=== PATIENT | male | born 1970 | race Caucasian/White ===

== ENCOUNTER 2020-06-09 12:02 | Observation (INO) | payer MEDICARE, MEDICAID, SELFPAY ==
[2020-06-09 12:05] VITALS: BP 187/131; PULSE 85; RESP 18; TEMP 36.2; O2SAT 95; BMI 30.7
[2020-06-09 12:21] LABS: Glucose Point of Care 123 mg/dL (70-110)
--- NOTE | 2020-06-09 12:27 | CTR_ITS ---
PROCEDURE INFORMATION: Exam: CT Head Without Contrast Exam date and time: 06/09/2020 12:29 PM Age: 49 years old Clinical indication: Other: Neuro symptoms TECHNIQUE: Imaging protocol: Computed tomography of the head without contrast. Radiation optimization: All CT scans at this facility use at least one of these dose optimization techniques: automated exposure control; mA and/or kV adjustment per patient size (includes targeted exams where dose is matched to clinical indication); or iterative reconstruction. COMPARISON: CT head wo con* [id number] 03/03/2018 7:31 AM RADIATION DOSE METRICS: Total DLP (mGy-cm): 896 FINDINGS: Brain: Stable encephalomalacia and 8.4 x 5.0 x 8.1 cm cystic collection in the right frontal lobe. Stable periventricular hypodensity and dural calcification. 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 Bones/joints: No acute calvarial pathology. Sinuses: No sinus fluid. Mastoid air cells: No mastoid effusion. Soft tissues: Unremarkable soft tissues. When correlating with the previous study, no significant interval changes are present. CT/CT head wo con* [id number] IMPRESSION: Stable appearance of the brain, not significantly changed from 03/03/18. Radiation Dose CTDIVOL = (mGy): DLP = 896 (mGy-cm)
--- NOTE | 2020-06-09 12:27 | ECG_ITS ---
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 Measurements Intervals [place] Rate: 80 P: 57 CO: 181 QRS: -7 QRSD: 77 T: 38 QT: 351 QTc: 406 Interpretive Statements SINUS RHYTHM POSSIBLE LEFT ATRIAL ENLARGEMENT [-0.1mV P WAVE IN V1/V2] Compared to ECG 03/03/2018 07:54:12 No significant changes Electronically Signed On 06-09-2020 18:12:11 CDT by Loren Nath M.D. [id number] f
--- NOTE | 2020-06-09 12:27 | XR_ITS ---
WS: [id number] EXAM: AP CHEST: PORTABLE UPRIGHT DATE OF EXAM: 06/09/2020, 1245 hours COMPARISON: Chest x-ray from 03/03/2018 HISTORY: Patient is 49 years old with acute mental status changes.. FINDINGS: The cardiac silhouette is normal in size. The mediastinal contours are normal. The pulmonary vas cularity is normal. The lungs are clear of infiltrate. There is no effusion or pneumothorax. Bone density is decreased. Scattered changes of arthritis are seen in the spine. XR/XR chest 1V portable [id number] IMPRESSION: No acute pulmonary disease.
[2020-06-09 12:54] LABS: Basophils % 0.3 %; Eosinophils % 0.4 %; Hematocrit 47.1 % (42.0-52.0); Hemoglobin 15.7 g/dL (11.7-16.6); Lymphocytes # 0.9 10^3/uL (0.8-4.8); Lymphocytes % 9.1 %; Mean Corpuscular HGB Conc 33.3 g/dL (30.0-36.0); Mean Corpuscular Hemoglobin 27.5 pg (28.0-34.0); Mean Corpuscular Volume 82.5 fL (80-94); Mean Platelet Volume 8.8 fL (7.4-10.4); Monocytes # 0.6 10^3/uL (0.2-0.9); Monocytes % 5.9 %; Neutrophils # 8.69 10^3/uL (1.8-7.7); Neutrophils % 83.9 %; Nucleated Red Blood Cells % 0 %; Platelet Count 379 10^3/cmm (130-400); Red Blood Count 5.71 10^6/uL (4.1-5.3); Red Cell Distribution Width 12.7 % (12.1-15.1); White Blood Count 10.4 10^3/uL (4.0-10.0)
[2020-06-09 12:56] LABS: Troponin(5th) Baseline 9 ng/L (0-15)
[2020-06-09 13:06] LABS: Alanine Aminotransferase 20 U/L (0-41); Albumin Level 4.8 g/dL (3.5-5.2); Alkaline Phosphatase 140 IU/L (40-130); Anion Gap 14.3 (5-19); Aspartate Amino Transferase 28 U/L (0-40); Blood Urea Nitrogen 5 mg/dL (6-20); Calcium 9.5 mg/dL (8.5-10.5); Carbon Dioxide 27 mmol/L (22-29); Chloride 88 mmol/L (98-107); Creatine Phosphokinase 220 U/L (39-308); Globulin 2.6 g/dL (1.3-4.6); Glomerular Filtration Rate 101.9 mL/min (90-130); Glucose 121 mg/dL (65-115); Lipase 40 U/L (13-60); NT Pro B Type Natriuretic Pept 214 pg/mL (0-125); Osmolality Calculated 257 mOsm/kg (285-295); Potassium 4.3 mmol/L (3.5-5.1); Sodium 125 mmol/L (136-145); Total Bilirubin 0.9 mg/dL (0.15-1.2); Total Protein 7.4 g/dL (6.6-8.7)
[2020-06-09 14:01] LABS: Glucose Urine UA Norm (Normal); Ketones Urine Negative (Negative); Protein Urine Trace (Negative); Urine Appearance Clear (CLEAR); Urine Color Yellow (Yellow); pH Urine 8 (5-7)
[2020-06-09 14:02] LABS: Add Urine Microscopic? YES; Bilirubin Urine Neg (NEGATIVE); Blood Urine Trace (Negative); Leukocyte Esterase Urine Negative (Negative); Nitrate Urine Negative (Negative); Sulfosalicylic Acid Urine Trace (Negative); Urobilinogen Urine Norm (Negative)
[2020-06-09 14:04] LABS: Bacteria Urine TRACE; Mucus Urine TRACE; RBC Urine 0-4 /hpf (0-2); Squamous Epithelial Cell Urine RARE (0-5)
[2020-06-09 14:05] LABS: Add Urine Culture? No
--- NOTE | 2020-06-09 14:27 | ECG_ITS ---
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 Measurements Intervals [place] Rate: 69 P: 47 FL: 171 QRS: -20 QRSD: 82 T: 37 QT: 380 QTc: 409 Interpretive Statements SINUS RHYTHM Compared to ECG 03/03/2018 07:54:12 No significant changes Electronically Signed On 06-09-2020 18:15:02 CDT by Loren Nath M.D. [id number]
[2020-06-09 14:40] LABS: Troponin 5 2HR 8.58 ng/L (0-15)
[2020-06-09 14:46] LABS: Troponin 5 2HR Delta -0.42 ABS# (0-10)
--- NOTE | 2020-06-09 15:50 | ED_ITS ---
HPI - Chest Pain General: Chief Complaint: Chest Pain Stated Complaint: stroke s/s Time Seen by Provider: 06/09/20 12:05 Source: family Mode of arrival: EMS History of Present Illness: HPI narrative: The patient is a 49 year old male who has a prior CVA and has speech and left sided deficits presents to the ED with generalized weakness. Apparently sometime during the night he got up and fell a couple of times and after that said he was too weak to get back to bed and so lay on the couch all night. It is difficult to obtain a history from him because of his prior CVA. 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, expressive aphasia Developmental delay, mild HTN (hypertension) Hydrocephalus associated with congenital aqueduct stenosis Hyponatremia Obesity (BMI 30.0-34.9) Surgical History No pertinent past surgical history Family History Mother Stroke Father Cancer Social History (Updated 06/09/20 @ 16:18 by Anabela Koroma MD) Smoking and tobacco status: never smoked Alcohol intake: never Substance/Drug Use: never Lives independently: Yes Housing: Manufactured/Mobile home Current occupational status: disabled Physical Exam Const: COMMON NORMALS: no acute distress and alert EXAM LIMITATIONS: language barrier (Speech) and physical limitations GENERAL APPEARANCE: cooperative HENMT: COMMON NORMALS: normocephalic and atraumatic HEAD & SCALP: normocephalic and atraumatic Neck/C-Spine: COMMON NORMALS: no meningeal signs CERVICAL SPINE: Yes cervical ROM normal and No Cervical spine tenderness Chest: COMMONS NORMALS: normal inspection of the chest and normal palpation of entire chest wall Resp: COMMON NORMALS: normal respiratory effort, No retractions, No use of accessory muscles and clear to auscultation bilaterally AUSCULTATION: clear to auscultation bilaterally Cardio: COMMON NORMALS: regular rate, regular rhythm, S1 normal heart sound present, S2 normal heart sound present and No murmurs present (Cardio) RATE: regular rate RHYTHM: regular rhythm HEART SOUNDS: S1 normal heart sound present and S2 normal heart sound present GI: COMMON NORMALS: Normal to inspection, nondistended, normoactive bowel sounds present and non-tender : COMMON NORMALS: Yes no CVA tenderness BLADDER/KIDNEY EXAM: Yes no CVA tenderness Back/Pelvis: COMMON NORMALS: no CVA tenderness, thoracic and lumbar spine normal to inspection and no thoracic nor lumbar tenderness Neuro: SENSORIUM/ORIENTATION: Yes alert MENINGEAL SIGNS: Yes no meningeal signs OTHER: Neurologic exam difficult to perform because the patient is unable to follow commands and he has baseline speech deficits and weakness Course Consultations: Consultation #1: Discussed the patient with Dr. Koroma, hospitalist and she kindly accepted the patient to her service Vital Signs: Vital signs: Vital Signs Temperature 98.2 F 06/10/20 11:41 Pulse Rate 74 06/10/20 11:41 Respiratory Rate 18 06/10/20 11:41 Blood Pressure 167/73 06/10/20 11:41 Pulse Oximetry 96 06/10/20 11:41 MDM - Chest Pain MDM Narrative: Medical decision making narrative: 49-year-old gentleman with a prior history of a CVA presents to the emergency department with generalized weakness and falls. Evaluation in the ED shows he has moderate hyponatremia and a possible TIA. He is therefore admitted for further evaluation and management. Medical Records: Attestation: I reviewed the patient's medical records. Lab Data: Attestation: I reviewed the patient's lab results. Labs: Lab Results 06/09/20 06/09/20 06/09/20 Range/Units 12:14 12:17 12:17 WBC 10.4 H (4.0-10.0) 10^3/ uL RBC 5.71 H (4.1-5.3) 10^6/u L Hgb 15.7 (11.7-16.6) g/dL Hct 47.1 (42.0-52.0) % MCV 82.5 (80-94) fL MCH 27.5 L (28.0-34.0) pg MCHC 33.3 (30.0-36.0) g/dL RDW 12.7 (12.1-15.1) % Plt Count 379 (130-400) 10^3/c mm MPV 8.8 (7.4-10.4) fL Neut % (Auto) 83.9 % Lymph % (Auto) 9.1 % [place] % (Auto) 5.9 % Eos % (Auto) 0.4 % Baso % (Auto) 0.3 % Neut # (Auto) 8.69 H (1.8-7.7) 10^3/u L Lymph # (Auto) 0.9 (0.8-4.8) 10^3/u L [place] # (Auto) 0.6 (0.2-0.9) 10^3/u L Eos # (Auto) 0.0 (0.0-0.8) 10^3/u L Baso # (Auto) 0.0 (0.0-0.1) 10^3/u L Nucleated RBC % (a uto) 0 % Nucleated RBCs # 0.0 /100WBC Sodium 125 L (136-145) mmol/L Potassium 4.3 (3.5-5.1) mmol/L Chloride 88 L (98-107) mmol/L Carbon Dioxide 27 (22-29) mmol/L Anion Gap 14.3 (5-19) BUN 5 L (6-20) mg/dL Creatinine 0.8 (0.7-1.2) mg/dL GFR Calculation 101.9 (90-130) mL/min Glucose 121 H (65-115) mg/dL POC Glucose 123 (70-110) mg/dL Calculated Osmolal ity 257 L (285-295) mOsm/k g Calcium 9.5 (8.5-10.5) mg/dL Total Bilirubin 0.9 (0.15-1.2) mg/dL AST 28 (0-40) U/L ALT 20 (0-41) U/L Alkaline Phosphata se 140 H (40-130) IU/L Creatine Kinase 220 (39-308) U/L Troponin T Baselin e (0-15) ng/L Troponin T 120 Min [place] (0-15) ng/L Delta Troponin T (0-10) ABS# NT-Pro-B Natriuret Pep 214 H (0-125) pg/mL Total Protein 7.4 (6.6-8.7) g/dL Albumin 4.8 (3.5-5.2) g/dL Globulin 2.6 (1.3-4.6) g/dL Lipase 40 (13-60) U/L Urine Color (Yellow) Urine Appearance (CLEAR) Urine pH (5-7) Ur Specific Gravit y (1.005-1.030) Urine Protein (Negative) Urine Glucose (UA) (Normal) Urine Ketones (Negative) Urine Blood (Negative) Urine Nitrate (Negative) Urine Bilirubin (NEGATIVE) Prot Sulfosalicyli c Acd (Negative) Urine Urobilinogen (Negative) mg/dL Ur Leukocyte Angi ase (Negative) Urine RBC (0-2) /hpf Urine WBC (0-5) /hpf Ur Squamous Epith Cells (0-5) Amorphous Sediment Urine Bacteria (NONE) Urine Mucus 06/09/20 06/09/20 06/09/20 Range/Units 12:17 13:32 14:10 WBC (4.0-10.0) 10^3/ uL RBC (4.1-5.3) 10^6/u L Hgb (11.7-16.6) g/dL Hct (42.0-52.0) % MCV (80-94) fL MCH (28.0-34.0) pg MCHC (30.0-36.0) g/dL RDW (12.1-15.1) % Plt Count (130-400) 10^3/c mm MPV (7.4-10.4) fL Neut % (Auto) % Lymph % (Auto) % [place] % (Auto) % Eos % (Auto) % Baso % (Auto) % Neut # (Auto) (1.8-7.7) 10^3/u L Lymph # (Auto) (0.8-4.8) 10^3/u L [place] # (Auto) (0.2-0.9) 10^3/u L Eos # (Auto) (0.0-0.8) 10^3/u L Baso # (Auto) (0.0-0.1) 10^3/u L Nucleated RBC % (a uto) % Nucleated RBCs # /100WBC Sodium (136-145) mmol/L Potassium (3.5-5.1) mmol/L Chloride (98-107) mmol/L Carbon Dioxide (22-29) mmol/L Anion Gap (5-19) BUN (6-20) mg/dL Creatinine (0.7-1.2) mg/dL GFR Calculation (90-130) mL/min Glucose (65-115) mg/dL POC Glucose (70-110) mg/dL Calculated Osmolal ity (285-295) mOsm/k g Calcium (8.5-10.5) mg/dL Total Bilirubin (0.15-1.2) mg/dL AST (0-40) U/L ALT (0-41) U/L Alkaline Phosphata se (40-130) IU/L Creatine Kinase (39-308) U/L Troponin T Baselin e 9 (0-15) ng/L Troponin T 120 Min [place] 8.58 (0-15) ng/L Delta Troponin T -0.42 L (0-10) ABS# NT-Pro-B Natriuret Pep (0-125) pg/mL Total Protein (6.6-8.7) g/dL Albumin (3.5-5.2) g/dL Globulin (1.3-4.6) g/dL Lipase (13-60) U/L Urine Color Yellow (Yellow) Urine Appearance Clear (CLEAR) Urine pH 8 H (5-7) Ur Specific Gravit y 1.010 (1.005-1.030) Urine Protein Trace (Negative) Urine Glucose (UA) Norm (Normal) Urine Ketones Negative (Negative) Urine Blood Trace H (Negative) Urine Nitrate Negative (Negative) Urine Bilirubin Neg (NEGATIVE) Prot Sulfosalicyli c Acd Trace (Negative) Urine Urobilinogen Norm (Negative) mg/dL Ur Leukocyte Angi ase Negative (Negative) Urine RBC 0-4 H (0-2) /hpf Urine WBC None (0-5) /hpf Ur Squamous Epith Cells Rare (0-5) Amorphous Sediment Not Reportable Urine Bacteria Trace (NONE) Urine Mucus Trace Imaging Data^: CT Head: Radiologist's impression: [address] [address] [address] Scan Report Signed Patient: Morelia Ennis #: [id number] : 1970Acct#:[id number] Age/Sex: 49 / MADM Date: 06/09/20 Loc: ERRoom/Bed: Attending Dr: Ordering Provider/Ordering MD: Jigna Almendarez MD, [facility] [place] Date of Service: 06/09/20 Procedure(s): CT head wo con* [id number] Accession Number(s): [id number] Report Number: [id number] PROCEDURE INFORMATION: Exam: CT Head Without Contrast Exam date and time: 06/09/2020 12:29 PM Age: 49 years old Clinical indication: Other: Neuro symptoms TECHNIQUE: Imaging protocol: Computed tomography of the head without contrast. Radiation optimization: All CT scans at this facility use at least one of these dose optimization techniques: automated exposure control; mA and/or kV adjustment per patient size (includes targeted exams where dose is matched to clinical indication); or iterative reconstruction. COMPARISON: CT head wo con* [id number] 03/03/2018 7:31 AM RADIATION DOSE METRICS: Total DLP (mGy-cm): 896 FINDINGS: Brain: Stable encephalomalacia and 8.4 x 5.0 x 8.1 cm cystic collection in the right frontal lobe. Stable periventricular hypodensity and dural calcification. 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 Bones/joints: No acute calvarial pathology. Sinuses: No sinus fluid. Mastoid air cells: No mastoid effusion. Soft tissues: Unremarkable soft tissues. When correlating with the previous study, no significant interval changes are present. CT/CT head wo con* [id number] IMPRESSION: Stable appearance of the brain, not significantly changed from 03/03/18. Radiation Dose CTDIVOL = (mGy): DLP = 896 (mGy-cm) Dictated By:Ash Johnston MD Signed By:Ash Johnston MDSigned Date/Time:06/09/20 1336 DD/ 133 CXR: Radiologist's impression: [address] [address] XRay Report Signed Patient: Morelia Ennis #: [id number] : 1970Acct#:[id number] Age/Sex: 49 / MADM Date: 06/09/20 Loc: [facility]/Bed: 253-[address]: Anjum Fisher MD Ordering Provider/Ordering MD: Jigna Almendarez MD, [facility] [place] Date of Service: 06/09/20 Procedure(s): XR chest 1V portable [id number] Accession Number(s): [id number] Report Number: [id number] WS: [id number] EXAM: AP CHEST: PORTABLE UPRIGHT DATE OF EXAM: 06/09/2020, 1245 hours COMPARISON: Chest x-ray from 03/03/2018 HISTORY: Patient is 49 years old with acute mental status changes.. FINDINGS: The cardiac silhouette is normal in size. The mediastinal contours are normal. The pulmonary vascularity is normal. The lungs are clear of infiltrate. There is no effusion or pneumothorax. Bone density is decreased. Scattered changes of arthritis are seen in the spine. XR/XR chest 1V portable [id number] IMPRESSION: No acute pulmonary disease. Dictated By:Jean Orozco MD Signed By:Jean Orozco MDSigned Date/Time:06/10/20715 DD/ Discharge Plan Discharge Patient Disposition: Admitted As Inpatient Admit Provider: Anabela Koroma Clinical Impression: Brain TIA, Hyponatremia Condition: Stable Interventions: ED Discharge Assessment Last Done: 06/09/20 16:08 ED Charges Last Done: 06/09/20 16:08 Discharge Date/Time: 06/09/20 17:28 Coding Level of Care Code ED Stock Letterer for Johana Tinoco
[2020-06-09 16:06] VITALS: BP 179/104; PULSE 78; RESP 18; O2SAT 96
--- NOTE | 2020-06-09 16:07 | PM.HP ---
Providers/Chief Complaint Admitting Physician: Anabela Koroma MD Primary Care Provider: None Chief Complaint: stroke s/s History of Present Illness Rajesh Ennis is a 49 year old male with past medical history noted below presents accompanied by mother for evaluation of noted increased upper extremity weakness, lower extremity weakness, facial droop and fall last night. He has some degree of cognitive developmental delay so much of the history is obtained from mother at bedside and review of medical record. Per mother and nursing staff patient already has significant improvement in terms of ability to vocalize and level of alertness since being seen in the ER. Mother states that he is fairly independent, lives in a trailer behind her home and seemed to be doing well until he came to the house last night stating that he had fallen out of bed. She is unable to elicit further information from him but she did notice that he was dragging his leg, she cannot remember which one and had a noted facial droop, cannot remember which side and had significant difficulty with his speech. He has baseline aphasia but she is typically able to understand his speech, last night she noticed that his speech was more garbled and he had difficulty forming words with his tongue. She helped get him cleaned up and then brought him to the hospital for further evaluation. He does not have a regular doctor that he sees and is not on regular medications. He had a prior stroke in 2017 during which time he was admitted at this facility, at that time he was discharged on aspirin, Plavix, statin, MARAH inhibitor, Lasix. I am unsure how long he has not been taking these medications. Per his mother his speech is almost at baseline. He is quite hypertensive with blood pressure of 183/131 with otherwise normal vital signs and is on room air. CT scan of the head does not show any acute findings. Her labs indicate mild leukocytosis with a white count of 10.4, normal hemoglobin at 15.7, sodium of 125, normal renal function, ALP of 140 with otherwise normal LFTs, normal troponins, BNP of 214, negative urinalysis. Chest x-ray has been done but is pending report. Discussed with patient and mother need for further assessment as he has been off his medications for some time and is at risk for further ischemic episodes. He is agreeable to staying overnight for further monitoring. Discussed echo and carotid ultrasound as well as part of the work-up which they are both agreeable to also. Review of Systems Const: Reports: fatigue; Denies: fever(s), chills or change in appetite Eyes: Denies: change in vision ENMT: Reports: dry mouth Card: Denies: chest pain, swelling of feet/ankles or lightheadedness Resp: Denies: dyspnea or productive cough GI: Denies: abdominal pain, nausea, vomiting, hematemesis or hematochezia : Denies: dysuria, urinary frequency or hematuria Musc: Denies: back pain Skin/Breast: Denies: rash Neuro: Reports: weakness in extremities and Slurred speech present; Denies: numbness in extremities Psych: Denies: anxiety Medications/Allergies Home Medications Medication Instructions Recorded Confirmed Last Taken Type No Known Home Medications 06/09/20 06/09/20 Unknown History Allergies Allergy/AdvReac Type Severity Reaction Status Date / Time No Known Allergies Allergy Verified 06/09/20 12:15 PFSH Acute PFSH: Medical History (Updated 06/09/20 @ 16:32 by Anabela Koroma MD) CVA (cerebral vascular accident) -in 04/2017, right 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, expressive aphasia Developmental delay, mild HTN (hypertension) Hydrocephalus associated with congenital aqueduct stenosis Hyponatremia Obesity (BMI 30.0-34.9) Surgical History No pertinent past surgical history Family History Mother Stroke Father Cancer Social History (Updated 06/09/20 @ 16:18 by Anabela Koroma MD) Smoking and tobacco status: never smoked Alcohol intake: never Substance/Drug Use: never Lives independently: Yes Housing: Manufactured/Mobile home Current occupational status: disabled Vitals/I&O/Wt Last Vital Signs Temp 97.2 F L 06/09/20 12:05 Pulse 78 06/09/20 16:06 Resp 18 06/09/20 16:06 BP 179/104 06/09/20 16:06 Pulse Ox 96 06/09/20 16:06 Weight last 48 hrs Weight 86.183 kg Physical Exam Const: COMMON NORMALS: no acute distress and alert GENERAL APPEARANCE: cooperative, comfortable and appears older than stated age NUTRITIONAL APPEARANCE: obese ORIENTATION/CONSCIOUSNESS: Yes awake OTHER: -Overall demeanor seems consistent with at least some moderate degree of cognitive mental delay -Difficult to gauge orientation due to patient's expressive aphasia HENMT: COMMON NORMALS: normocephalic, atraumatic, hearing grossly normal bilaterally and moist oral mucous membranes HEAD & SCALP: normocephalic and atraumatic Eye: COMMON NORMALS: Equal, round and reactive pupils present, EOMs intact bilaterally and conjunctivae normal CONJUNCTIVA: Yes conjunctivae normal PUPIL: Yes Equal, round and reactive pupils present Neck/C-Spine: COMMON NORMALS: full ROM GENERAL: Yes normal visual inspection and Yes trachea midline Resp: COMMON NORMALS: normal respiratory effort, No retractions, No use of accessory muscles and clear to auscultation bilaterally EFFORT & INSPECTION: Yes able to speak in complete sentences, Yes symmetric chest movement and No tachypneic AUSCULTATION: clear to auscultation bilaterally OTHER: -on RA Cardio: COMMON NORMALS: regular rate, regular rhythm, S1 normal heart sound present, S2 normal heart sound present and No murmurs present (Cardio) RATE: regular rate RHYTHM: regular rhythm HEART SOUNDS: S1 normal heart sound present and S2 normal heart sound present OTHER: -Hypertensive GI: COMMON NORMALS: Normal to inspection, nondistended, normoactive bowel sounds present, Soft to palpation and non-tender INSPECTION: Yes central obesity PALPATION: Yes Soft to palpation Extremity: COMMON NORMALS: no pedal edema NARRATIVE EXTREMITY EXAM: -Left upper extremity hemiparesis, mildly contracted, limited range of motion to about 50 degrees Neuro: COMMON NORMALS: moves all extremities, no focal motor deficits and no sensory deficits noted SENSORIUM/ORIENTATION: Yes alert SPEECH: expressive aphasia (Chronic) MOTOR EXAM: no tremor noted, Motor fasciculations not present and Abnormal motor strength present (Left upper extremity hemiparesis, strength 3 out of 5) OTHER: -Limited neurological exam due to patient's inability to fully comprehend commands secondary to underlying developmental delay Psych: COMMON NORMALS: cooperative ATTITUDE: Yes calm SPEECH: Yes slow and Yes soft THOUGHT PROCESS: Normal thought process present Skin: COMMON NORMALS: no rashes or lesions noted, no jaundice, no petechiae and no mottling GENERAL SKIN EXAM: no rashes or lesions noted Data : 06/09/20 12:17 06/09/20 12:17 A&P Assessment and plan (1) CVA (cerebral vascular accident): -Has history of prior stroke secondary to right LINOLEUM LAYER HELPER occlusion in 04/2017 with residual left-sided weakness, expressive aphasia -Symptoms described including more significant weakness, facial droop, lower extremity weakness and difficulty with ambulation concerning for TIA. 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 -resume salt tablets, fluid restriction, diuretics once out of permissive HTN window -monitor Na Status: Chronic (3) HTN (hypertension): -permissive HTN x 24 hrs -if need for more optimal BP control, can resume Amlodipine, ACEi which he was prescribed previously -monitor vital signs Status: Chronic Qualifiers: Hypertension type: essential hypertension Qualified Code(s): I10 - Essential (primary) hypertension (4) Developmental delay, mild: Status: Chronic (5) Hydrocephalus associated with congenital aqueduct stenosis: -visualized on prior CT head; appears unchanged Status: Chronic (6) Obesity (BMI 30.0-34.9): -BMI-31 kg/m2 Status: Chronic Additional A&P Information -Cardiac diet as tolerated if passed bedside swallow assessment -f/u CXR report -DVT ppx with SCDs, lovenox -Dispo: home, lives in trailer next to parents' home -Code status: FULL code Attestations Medical Necessity Statement*: [facility] stay will be less than 2 midnights for management of TIA and hyponatremia, requiring further workup including carotid US, Echo, and therapy evaluations. Time Spent in Patient Care: Greater than 35 minutes (>than 50% of time spent in counselling and/or direct pt care on unit). Coding Level of Care Code Acute Human Resources Department Supervisor for Chg Fwd Diagnoses CVA (cerebral vascular accident) I63.9 CVA mechanism: unspecified Hyponatremia E87.1 HTN (hypertension) I10 Hypertension type: essential hypertension Developmental delay, mild R62.50 Hydrocephalus associated with congenital aqueduct stenosis Q03.0 Obesity (BMI 30.0-34.9) E66.9
[2020-06-09 16:08] VITALS: BP 179/104; PULSE 78; RESP 20; TEMP 36.8; O2SAT 96
[2020-06-09 18:00] VITALS: BP 188/102; PULSE 79; RESP 18; TEMP 36.8; O2SAT 96
--- NOTE | 2020-06-09 18:27 | ECG_ITS ---
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 Measurements Intervals [place] Rate: 75 P: 29 IL: 164 QRS: 11 QRSD: 83 T: 48 QT: 374 QTc: 418 Interpretive Statements SINUS RHYTHM Compared to ECG 06/09/2020 14:52:24 No significant changes Electronically Signed On 06-10-2020 18:59:51 CDT by Loren Nath M.D. [id number]
[2020-06-09 18:36] VITALS: PULSE 75; O2SAT 97
[2020-06-09] MEDS: sodium chloride 1 gm Tablet PO (18:42)
[2020-06-09 20:00] VITALS: BP 159/106; PULSE 72; RESP 18; TEMP 37.2; O2SAT 97
[2020-06-09] MEDS: atorvastatin 40 mg Tablet PO (21:53)
[2020-06-10 00:42] VITALS: BP 163/103; PULSE 69; RESP 18; TEMP 36.7; O2SAT 98
[2020-06-10 03:12] LABS: Basophils % 0.4 %; Eosinophils # 0.2 10^3/uL (0.0-0.8); Eosinophils % 2.2 %; Hematocrit 42.9 % (42.0-52.0); Hemoglobin 14.4 g/dL (11.7-16.6); Lymphocytes # 1.4 10^3/uL (0.8-4.8); Lymphocytes % 19.7 %; Mean Corpuscular HGB Conc 33.6 g/dL (30.0-36.0); Mean Corpuscular Hemoglobin 28.2 pg (28.0-34.0); Mean Platelet Volume 8.9 fL (7.4-10.4); Monocytes # 0.7 10^3/uL (0.2-0.9); Monocytes % 10.3 %; Neutrophils # 4.83 10^3/uL (1.8-7.7); Neutrophils % 67.1 %; Nucleated Red Blood Cells % 0 %; Platelet Count 330 10^3/cmm (130-400); Red Blood Count 5.11 10^6/uL (4.1-5.3); Red Cell Distribution Width 12.8 % (12.1-15.1); White Blood Count 7.2 10^3/uL (4.0-10.0)
[2020-06-10 03:35] LABS: Anion Gap 12.9 (5-19); Blood Urea Nitrogen 8 mg/dL (6-20); Calcium 8.4 mg/dL (8.5-10.5); Carbon Dioxide 26 mmol/L (22-29); Chloride 92 mmol/L (98-107); Glomerular Filtration Rate 118.9 mL/min (90-130); Glucose 107 mg/dL (65-115); Osmolality Calculated 260 mOsm/kg (285-295); Potassium 3.9 mmol/L (3.5-5.1); Sodium 127 mmol/L (136-145)
[2020-06-10 03:36] LABS: Cholesterol 168 mg/dL (0-200); HDL Cholesterol 60 mg/dL (60-100); LDL Cholesterol Calculated 97 mg/dL (50-129); LDL HDL Ratio 1.62 RATIO (0.00-3.22); Triglycerides 56 mg/dL (0-150)
[2020-06-10 03:38] LABS: Thyroid Stimulating Hormone 0.65 uIU/mL (0.27-4.20)
[2020-06-10 03:43] LABS: Estmated Average Glucose 105; Hemoglobin A1C 5.3 % (4.0-6.0)
[2020-06-10 04:00] VITALS: BP 161/70; PULSE 71; RESP 19; TEMP 36.8; O2SAT 97
[2020-06-10 08:00] VITALS: BP 164/71; PULSE 72; RESP 20; TEMP 36.9; O2SAT 98
[2020-06-10] MEDS: sodium chloride 1 gm Tablet PO ×2 (08:17→17:34)
[2020-06-10] MEDS: clopidogrel 75 mg Tablet PO (08:18)
[2020-06-10] MEDS: lisinopril 20 mg Tablet PO (08:18)
[2020-06-10] MEDS: aspirin 81 mg EC Tablet PO (08:18)
--- NOTE | 2020-06-10 09:30 | PC.NURSE ---
HEART TO HEART ROUNDING NOTE Hospital Day #1, no PCP, Case Management might need to see, needs an ECHO possibly. Left sided weakness and facial drooping, plan is to be discharged potentially today (06/10) No IV, Sodium up to 127, deficits have mostly resolved according to nursing RT: Nothing noted Pharmacy: Nothing noted
[2020-06-10 11:41] VITALS: BP 167/73; PULSE 74; RESP 18; TEMP 36.8; O2SAT 96
--- NOTE | 2020-06-10 13:05 | PM.DCS ---
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 Qualifiers: CVA mechanism: unspecified Qualified Code(s): I63.9 - Cerebral infarction, unspecified (2) Hyponatremia: Status: Chronic Problem details: Improved (3) HTN (hypertension): Status: Chronic Problem details: Improved Qualifiers: Hypertension type: essential hypertension Qualified Code(s): I10 - Essential (primary) hypertension (4) Developmental delay, mild: Status: Chronic (5) Hydrocephalus associated with congenital aqueduct stenosis: Status: Chronic (6) Obesity (BMI 30.0-34.9): Status: Chronic Reason for Visit Reason for Visit: stroke s/s Hospital Course Hospital Course: Rajesh is a 49-year-old white male that presented from home with fall and perhaps more significant weakness on his left side and more facial droop. He had not been on his medications for stroke prevention for some time. There was also some concern for speech difficulties. While in the emergency department symptoms largely resolved. He was placed in an observation category. Aspirin Plavix and statin were restarted on the patient. EKG, and telemetry monitoring did not indicate any atrial fibrillation. CT head no acute changes. Chest x-ray no concerns. Ultimately echocardiogram demonstrated no thrombus and carotid duplex demonstrated no flow-limiting stenosis. On June 10 he was back to his baseline. It was thought he could transition home. Blood pressure was also high on admission. Permissive hypertension was allowed, and his blood pressure medicine started later approximately 24 hours after symptom resolution with improvement in blood pressure. This will need to be continued to be adjusted as an outpatient as well as repeat sodium to check on hyponatremia. Home health and home physical therapy will be arranged. I attempted to call family to inform them regarding his study results but they were unavailable and no answering service was noted. Physical Exam Narrative: EXAM NARRATIVE: General exam no apparent distress, conversive Cardiovascular regular rate and rhythm without murmur Lungs clear Abdomen is soft, positive bowel sounds Extremities no cyanosis or clubbing. Left partial hemiparesis noted, left facial droop which is reported to be at his baseline. Discharge Data Data Completed and Pending: Completed Studies During Hospitalization Category Date Time Status CT head wo con* [id number] Urgent Cat Scan 06/09/20 12:27 Completed XR chest 1V damari ble [id number] Stat Exams 06/09/20 12:27 Completed CV echo complete* [id number] Routine Ultrasound 06/10/20 17:41 Completed Pending at discharge Category Date Time Status CV carotid duplex BI* [id number] Routine Ultrasound 06/10/20 17:41 Taken Labs from last 24 hours 06/10/20 06/10/20 06/10/20 02:45 02:45 02:45 WBC RBC Hgb Hct MCV MCH MCHC RDW Plt Count MPV Neut % (Auto) Lymph % (Auto) Luna % (Auto) Eos % (Auto) Baso % (Auto) Neut # (Auto) Lymph # (Auto) Luna # (Auto) Eos # (Auto) Baso # (Auto) Nucleated RBC % (a uto) Nucleated RBCs # Sodium Potassium Chloride Carbon Dioxide Anion Gap BUN Creatinine GFR Calculation Glucose Estimat Average Gl ucose 105 Hemoglobin A1c 5.3 Calculated Osmolal ity Calcium Total Bilirubin AST ALT Alkaline Phosphata se Creatine Kinase Troponin T 120 Min [place] Delta Troponin T Troponin T Hi Sens 6Hr Troponin T Hi Sens 6Hr Delta NT-Pro-B Natriuret Pep Total Protein Albumin Globulin Triglycerides 56 Cholesterol 168 LDL Cholesterol, C alc 97 HDL Cholesterol 60 LDL/HDL Ratio 1.62 Cholesterol/HDL Ra rambo 2.80 Lipase TSH 0.65 Urine Color Urine Appearance Urine pH Ur Specific Gravit y Urine Protein Urine Glucose (UA) Urine Ketones Urine Blood Urine Nitrate Urine Bilirubin Prot Sulfosalicyli c Acd Urine Urobilinogen Ur Leukocyte Angi ase Urine RBC Urine WBC Ur Squamous Epith Cells Amorphous Sediment Urine Bacteria Urine Mucus 06/10/20 06/10/20 06/09/20 02:45 02:45 18:22 WBC 7.2 RBC 5.11 Hgb 14.4 Hct 42.9 MCV 84.0 MCH 28.2 MCHC 33.6 RDW 12.8 Plt Count 330 MPV 8.9 Neut % (Auto) 67.1 Lymph % (Auto) 19.7 Luna % (Auto) 10.3 Eos % (Auto) 2.2 Baso % (Auto) 0.4 Neut # (Auto) 4.83 Lymph # (Auto) 1.4 Luna # (Auto) 0.7 Eos # (Auto) 0.2 Baso # (Auto) 0.0 Nucleated RBC % (a uto) 0 Nucleated RBCs # 0.0 Sodium 127 L Potassium 3.9 Chloride 92 L Carbon Dioxide 26 Anion Gap 12.9 BUN 8 Creatinine 0.7 GFR Calculation 118.9 Glucose 107 Estimat Average Gl ucose Hemoglobin A1c Calculated Osmolal ity 260 L Calcium 8.4 L Total Bilirubin AST ALT Alkaline Phosphata se Creatine Kinase Troponin T 120 Min [place] Delta Troponin T Troponin T Hi Sens 6Hr 9.50 Troponin T Hi Sens 6Hr Delta 0.50 NT-Pro-B Natriuret Pep Total Protein Albumin Globulin Triglycerides Cholesterol LDL Cholesterol, C alc HDL Cholesterol LDL/HDL Ratio Cholesterol/HDL Ra rambo Lipase TSH Urine Color Urine Appearance Urine pH Ur Specific Gravit y Urine Protein Urine Glucose (UA) Urine Ketones Urine Blood Urine Nitrate Urine Bilirubin Prot Sulfosalicyli c Acd Urine Urobilinogen Ur Leukocyte Angi ase Urine RBC Urine WBC Ur Squamous Epith Cells Amorphous Sediment Urine Bacteria Urine Mucus 06/09/20 06/09/20 06/09/20 14:10 13:32 12:17 WBC RBC Hgb Hct MCV MCH MCHC RDW Plt Count MPV Neut % (Auto) Lymph % (Auto) Luna % (Auto) Eos % (Auto) Baso % (Auto) Neut # (Auto) Lymph # (Auto) Luna # (Auto) Eos # (Auto) Baso # (Auto) Nucleated RBC % (a uto) Nucleated RBCs # Sodium 125 L Potassium 4.3 Chloride 88 L Carbon Dioxide 27 Anion Gap 14.3 BUN 5 L Creatinine 0.8 GFR Calculation 101.9 Glucose 121 H Estimat Average Gl ucose Hemoglobin A1c Calculated Osmolal ity 257 L Calcium 9.5 Total Bilirubin 0.9 AST 28 ALT 20 Alkaline Phosphata se 140 H Creatine Kinase 220 Troponin T 120 Min [place] 8.58 Delta Troponin T -0.42 L Troponin T Hi Sens 6Hr Troponin T Hi Sens 6Hr Delta NT-Pro-B Natriuret Pep 214 H Total Protein 7.4 Albumin 4.8 Globulin 2.6 Triglycerides Cholesterol LDL Cholesterol, C alc HDL Cholesterol LDL/HDL Ratio Cholesterol/HDL Ra rambo Lipase 40 TSH Urine Color Yellow Urine Appearance Clear Urine pH 8 H Ur Specific Gravit y 1.010 Urine Protein Trace Urine Glucose (UA) Norm Urine Ketones Negative Urine Blood Trace H Urine Nitrate Negative Urine Bilirubin Neg Prot Sulfosalicyli c Acd Trace Urine Urobilinogen Norm Ur Leukocyte Angi ase Negative Urine RBC 0-4 H Urine WBC None Ur Squamous Epith Cells Rare Amorphous Sediment Not Reportable Urine Bacteria Trace Urine Mucus Trace Vitals: Last Vital Signs Temp 98.2 F 06/10/20 11:41 Pulse 74 06/10/20 11:41 Resp 18 06/10/20 11:41 BP 167/73 06/10/20 11:41 Pulse Ox 96 06/10/20 11:41 Discharge Plan Discharge Patient Disposition: Home Health Service Condition: Stable Prescriptions: New aspirin 81 mg Tablet,Delayed Release (Dr/Ec) 81 mg PO DAILY Qty: 30 RF: 0 atorvastatin 40 mg Tablet 40 mg PO BEDTIME Qty: 30 RF: 0 clopidogrel 75 mg Tablet 75 mg PO DAILY Qty: 30 RF: 0 lisinopril 20 mg Tablet 20 mg PO DAILY Qty: 30 RF: 0 sodium chloride 1 gram Tablet 1 g PO BID Qty: 60 RF: 0 No Action No Known Home Medications RF: 0 Discharge Diet: Cardiac Discharge Activity: Increase activity as tolerated Activity Restrictions/Additional Instructions: Take all medicines as prescribed Home health on discharge Follow-up with primary care provider 3 to 5 days with visit and BMP. 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
[2020-06-10 15:37] VITALS: BP 169/71; PULSE 70; RESP 18; TEMP 36.9; O2SAT 97
--- NOTE | 2020-06-10 17:41 | USCV_ITS ---
Rajesh Ennis Age: 49 Gender: M : 1970 Exam Date: 06/10/2020 07:32 Ordering Phys: Anabela Koroma MD Technologist: Toi Pringle [place] [facility] [place]: CVA BP: 161 / 70 HR: 71 Rhythm: Sinus Technical Quality: Fair MEASUREMENTS (Male / Female) Normal Values 2D ECHO LV Diastolic Diameter PLAX 4.2 cm 4.2 - 5.9 / 3.9 - 5.3 cm LV Systolic Diameter PLAX 2.7 cm IVS Diastolic Thickness 0.8 cm 0.6 - 1.0 / 0.6 - 0.9 cm IVS Systolic Thickness 1.5 cm LVPW Diastolic Thickness 1.0 cm 0.6 - 1.0 / 0.6 - 0.9 cm LVPW Systolic Thickness 1.4 cm LVOT Diameter 2.1 cm LV Ejection Fraction 2D Teich 67.7 % LV Ejection Fraction MOD 2C 62.2 % LV Ejection Fraction 2C AL 62.6 % LA Diameter 4.0 cm LA Width 3.5 cm LA Height 4.5 cm RA Width 3.8 cm RA Height 4.7 cm Aorta at Sinotubular Diameter 1.1 cm M-MODE LV Diastolic Diameter MM 3.8 cm 4.2 - 5.9 / 3.9 - 5.3 cm LV Systolic Diameter MM 2.9 cm LV Ejection Fraction MM Teich 50.6 % IVS Diastolic Thickness MM 1.1 cm 0.6 - 1.0 / 0.6 - 0.9 cm IVS Systolic Thickness MM 1.6 cm LVPW Diastolic Thickness MM 1.2 cm 0.6 - 1.0 / 0.6 - 0.9 cm LVPW Systolic Thickness MM 1.5 cm RV Diastolic Diameter MM 1.3 cm Aortic Annulus Diameter 4.2 cm LA Ao Ratio MM 0.9 MV E Point Septal Separation 1.0 cm DOPPLER AV Peak Velocity 131.0 cm/s LVOT Peak Velocity 89.0 cm/s AV Area Cont Eq vti 2.5 cm squared AV Area Cont Eq pk 2.4 cm squared MV Area PHT 3.0 cm squared Mitral E to A Ratio 0.7 MV E' Velocity 8.0 cm/s Mitral E to MV E' Ratio 6.5 Mitral E to LV E' Lateral Ratio 6.9 Mitral E to LV E' Septal Ratio 6.3 TR Peak Velocity 141.0 cm/s TR Peak Gradient 8.0 mmHg TV Peak E Velocity 93.0 cm/s Right Atrial Pressure 3.0 mmHg Pulmonary Artery Systolic Pressu 11.0 mmHg PV Peak Velocity 113.0 cm/s FINDINGS Left Ventricle Normal left ventricular size, systolic function and wall thickness, with no regional wall motion abnormalities. LV EF is 60-65%. Normal left ventricular wall thickness. Grade 1 diastolic dysfunction is noted Right Ventricle The right ventricle is normal in size and function. Right Atrium The right atrium is normal in size. Left Atrium The left atrium is normal in size. Mitral Valve Structurally normal mitral valve without significant stenosis or prolapse. There is no mitral regurgitation. Aortic Valve Structurally normal aortic valve without significant sclerosis or stenosis. There is no aortic regurgitation. Tricuspid Valve Structurally normal tricuspid valve without significant stenosis or regurgitation. Insufficient TR jet to assess RVSP Pulmonic Valve Structurally normal pulmonic valve without significant stenosis. There is no pulmonic regurgitation. Pericardium Normal pericardium without effusion. Aorta Normal ascending aorta dimension. CONCLUSIONS Normal LV systolic function with EF of 60-65% Grade 1 diastolic dysfunction is noted Dax Hansen MD (Electronically Signed) Final Date: 10 June 2020 08:52 S
--- NOTE | 2020-06-10 17:41 | USCV_ITS ---
Rajesh Ennis Age: 49 Gender: M : 1970 Exam Date: 06/10/2020 07:46 Ordering Phys: Anabela Koroma MD Technologist: Toi Pringle [place] [facility] [place]: CVA Risk Factors: None Previous Vascular Surgery: None Right Brachial BP: / Left Brachial BP: / Right Left Velocity (cm/s) Spectral Plaque Velocity (cm/s) Spectral Plaque Syst/Diast Broadening Syst/Diast Broadening 50.50/ 10.10 Prox CCA 53.00 / 15.40 52.80/ 10.90 Mid CCA 66.80 / 15.50 32.00/ 9.60 Distal CCA 61.40 / 17.10 44.90/ 15.00 Prox ICA 63.90 / 20.10 41.90/ 12.50 Mid ICA 59.70 / 15.30 40.70/ 13.70 Distal ICA 65.30 / 20.10 49.70 ECA 51.40 0.85 ICA/CCA 0.98 Antegrade Vertebral Antegrade 22.70/ 4.70 cm/s 59.70/ 12.50 cm/s Tri Subclavian Tri 57.50 95.90 FINDINGS Comparison:. 05/18/17. No significant elevation of systolic or diastolic velocities. Waveforms are normal. Minimal bilateral, intimal thickening with no elevation of velocity. CONCLUSIONS Minimal intimal thickening. No interval change in stenosis since prior exam. Dr. Malika Reina DO (Electronically Signed) Final Date: 10 June 2020 13:05 S
[2020-06-10 18:01] VITALS: BP 169/71; PULSE 70; RESP 18; TEMP 36.9; O2SAT 97
== END 2020-06-10 18:02 | disposition home health service (06) ==
LOC: ER 15:52 → MEDSURG 16:32
PROVIDERS: Family Medicine; Admitting Provider Family Medicine; Visit Provider Internal Medicine
DX: G45.9 Transient cerebral ischemic attack, unspecified (principal); E87.1 Hypo-osmolality and hyponatremia; I10 Essential (primary) hypertension; R62.50 Unspecified lack of expected normal physiological development in childhood; Q03.0 Malformations of aqueduct of Sylvius; I69.320 Aphasia following cerebral infarction; I69.354 Hemiplegia and hemiparesis following cerebral infarction affecting left non-dominant side; E66.9 Obesity, unspecified; Z68.30 Body mass index [BMI] 30.0-30.9, adult; Z82.3 Family history of stroke
CPT/HCPCS: 12345; 36415; 36416; 70450; 71045; 80048; 80053; 80061; 81001; 82550; 82962; 83036; 83690; 83880; 84443; 84484; 85025; 92523; 92610; 93005; 93306; 93880; 96365; 97116; 97161; 97166; 99282; 99285; G0378

== ENCOUNTER 2021-05-24 13:09 | Outpatient (CLI) | payer MEDICARE, MEDICAID, SELFPAY ==
[2021-05-24 14:49] LABS: Urine Appearance Hazy (CLEAR); Urine Color Straw (Yellow); pH Urine 8 (5-7)
[2021-05-24 14:50] LABS: Add Urine Microscopic? YES; Bilirubin Urine Neg (Negative); Blood Urine Trace (Negative); Glucose Urine UA Norm (Normal); Ketones Urine Negative (Negative); Leukocyte Esterase Urine Trace (Negative); Nitrate Urine Positive (Negative); Protein Urine Neg (Negative); RBC Urine 0-4 /hpf (0-2); Specific Gravity, Urine 1.015 (1.005-1.030); Sulfosalicylic Acid Urine Negative (Negative); Urobilinogen Urine 1 mg/dL (Negative); WBC Urine 25-40 /hpf (0-5)
[2021-05-24 14:51] LABS: Add Urine Culture? Yes; Bacteria Urine 2+ /hpf
[2021-05-24 17:42] LABS: Urine Random Sodium 126 mmol/L
[2021-05-26 15:13] LABS: Osmolality Urine 431 mOsm/kg (50-1200)
== END 2021-05-24 13:10 | disposition home or self-care (01) ==
PROVIDERS: Visit Provider Internal Medicine
DX: R39.15 Urgency of urination (principal)
CPT/HCPCS: 81001; 81003; 83935; 84300; 87086

== ENCOUNTER 2021-09-08 13:19 | Outpatient (CLI) | payer MEDICARE, MEDICAID, SELFPAY ==
[2021-09-08 13:59] LABS: Basophils % 0.2 %; Hematocrit 39.1 % (42.0-52.0); Hemoglobin 13.8 g/dL (11.7-16.6); Lymphocytes # 0.4 10^3/uL (0.8-4.8); Lymphocytes % 2.7 %; Mean Corpuscular HGB Conc 35.3 g/dL (30.0-36.0); Mean Corpuscular Hemoglobin 29.1 pg (28.0-34.0); Mean Corpuscular Volume 82.3 fl (80-94); Mean Platelet Volume 9.1 fL (7.4-10.4); Monocytes # 0.5 10^3/uL (0.2-0.9); Monocytes % 3.3 %; Neutrophils # 14.26 10^3/uL (1.8-7.7); Neutrophils % 93.4 %; Nucleated Red Blood Cells % 0 %; Platelet Count 349 10^3/cmm (130-400); Red Blood Count 4.75 10^6/uL (4.1-5.3); Red Cell Distribution Width 12.4 % (12.1-15.1); White Blood Count 15.3 10^3/uL (4.0-10.0)
[2021-09-08 14:11] LABS: Urine Appearance Clear (CLEAR); Urine Color Yellow (Yellow); pH Urine 7 (5-7)
[2021-09-08 14:12] LABS: Add Urine Microscopic? YES; Bilirubin Urine Neg (Negative); Blood Urine Trace (Negative); Glucose Urine UA Norm (Normal); Ketones Urine 1+ (Negative); Leukocyte Esterase Urine Negative (Negative); Nitrate Urine Negative (Negative); Protein Urine 1+ (Negative); Urobilinogen Urine Norm (Negative)
[2021-09-08 14:14] LABS: Add Urine Culture? No; Amorphous Sediment Urine 2+ /hpf; Bacteria Urine 1+ /hpf; RBC Urine 0-4 /hpf (0-2); Squamous Epithelial Cell Urine 0-4 /hpf (0-5); WBC Urine 0-4 /hpf (0-5)
[2021-09-08 14:26] LABS: Alanine Aminotransferase 8 U/L (0-41); Albumin Level 4.2 g/dL (3.5-5.2); Alkaline Phosphatase 71 IU/L (40-130); Anion Gap 20.7 (5-19); Aspartate Amino Transferase 13 U/L (0-40); Blood Urea Nitrogen 5 mg/dL (6-20); Calcium 8.4 mg/dL (8.5-10.5); Carbon Dioxide 19 mmol/L (22-29); Chloride 88 mmol/L (98-107); Globulin 2.3 g/dL (1.3-4.6); Glomerular Filtration Rate 173.9 mL/min (90-130); Glucose 108 mg/dL (65-115); Osmolality Calculated 256 mOsm/kg (285-295); Potassium 3.7 mmol/L (3.5-5.1); Sodium 124 mmol/L (136-145); Total Bilirubin 0.6 mg/dL (0.15-1.2); Total Protein 6.5 g/dL (6.6-8.7)
[2021-09-11 11:22] LABS: Levetiracetam Keppra 3.9 mcg/mL
== END 2021-09-08 13:20 | disposition home or self-care (01) ==
LOC: LAB 13:22
PROVIDERS: Visit Provider Internal Medicine
DX: G40.011 Localization-related (focal) (partial) idiopathic epilepsy and epileptic syndromes with seizures of localized onset, intractable, with status epilepticus (principal)
CPT/HCPCS: 80053; 80177; 81001; 85025

== ENCOUNTER 2023-04-08 17:18 | Emergency (ER) | payer MEDICARE, MEDICAID, SELFPAY ==
[2023-04-08 17:21] VITALS: BMI 24.2
[2023-04-08 17:40] VITALS: BP 138/101; PULSE 135; RESP 27; O2SAT 93
--- NOTE | 2023-04-08 17:44 | W.ED.AMS ---
HPI - Altered Mental Status General: Chief Complaint: Neuro Symptoms/Deficit Stated Complaint: seizures Time Seen by Provider: 04/08/23 17:44 Limitations: altered mental status History of Present Illness: 52-year-old gentleman with apparent history of stroke, developmental delay, prior seizures presenting to the emergency department for altered mental status. Apparently he had seizures x3 today though they were not full body tonic-clonic. He has been abnormal as far as mental state goes since about 3 PM. He is accompanied by mother and father who provided clinical history the patient himself provides no meaningful history with altered mental status. 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, expressive aphasia Developmental delay, mild HTN (hypertension) Improved Hydrocephalus associated with congenital aqueduct stenosis Obesity (BMI 30.0-34.9) Surgical History No pertinent past surgical history Family History Mother Stroke Father Cancer Social History Smoking and tobacco status: never smoked Alcohol intake: never Substance/Drug Use: never Lives independently: Yes Housing: Manufactured/Mobile home Current occupational status: disabled Physical Exam Const: GENERAL APPEARANCE: well developed and ill appearing HENMT: COMMON NORMALS: normocephalic and atraumatic HEAD & SCALP: normocephalic and atraumatic THROAT: posterior oropharynx normal Eye: COMMON NORMALS: conjunctivae normal CONJUNCTIVA: Yes conjunctivae normal SCLERA: sclerae normal OTHER: 2 mm bilaterally Neck/C-Spine: COMMON NORMALS: supple and no meningeal signs GENERAL: Yes trachea midline Resp: COMMON NORMALS: clear to auscultation bilaterally EFFORT & INSPECTION: Yes tachypneic AUSCULTATION: clear to auscultation bilaterally Cardio: COMMON NORMALS: regular rhythm RATE: tachycardic RHYTHM: regular rhythm GI: COMMON NORMALS: Soft to palpation PALPATION: Yes Soft to palpation and No Tenderness to palpation present (GI) Extremity: GENERAL: Yes normal exam except as noted and No edema Neuro: SENSORIUM/ORIENTATION: Yes Orientation impaired and Yes obtunded MENINGEAL SIGNS: Yes no meningeal signs OTHER: Significantly abnormal neurologic exam with intermittent abnormal extension muscle movements in the bilateral lower extremities Psych: MEMORY/COGNITION: Yes cognition grossly impaired Course Vital Signs: Vital signs: Vital Signs Pulse Rate 135 H 04/08/23 17:40 Respiratory Rate 27 H 04/08/23 17:40 Blood Pressure 138/101 04/08/23 17:40 Pulse Oximetry 93 04/08/23 17:40 Oxygen Delivery Me thod Room Air 04/08/23 17:40 MDM - Altered Mental Status Medical Decision Making 52-year-old gentleman with history of prior stroke, developmental delay, seizure disorder presenting to the emergency department with alteration in mental status. Patient is ill-appearing with tachycardia and tachypnea though lung sounds are clear and respiratory effort appears adequate with patent airway. He reportedly has had multiple seizures today and was last at baseline at least 2 and half hours prior to arrival. It is unclear whether he truly recovered in between seizures earlier. Patient appears to have abnormal muscle movements in bilateral lower extremities concerning for possible continued seizure-like activity. Benzodiazepine ordered in addition to fluids for tachycardia. Differential diagnosis at this point remains broad including infectious, electrolyte, [employer] MECH[employer]IC including status epilepticus, other. Patient was brought to CT scanner and I was called to the CT scanner at which point patient had a pulse however continued to have marked deterioration in respiratory status with essentially agonal respirations. I had previously seen that patient was a DNR. I instructed staff to begin [id number] ventilation and ordered Narcan given pinpoint pupils though ultimately I think toxic ingestion is less likely. I went to discuss with the patient's family and confirmed that patient is a DNR/DNI. In the past he has clearly verbalized to them that he would not want heroic measures. Sadly, I certainly feel that this is reasonable. Family obviously struggles with the degree of illness that he is currently experiencing though certainly agrees to abide by his wishes. I subsequently returned to the CT scanner at which point patient had become asystolic. No palpable pulse or response to stimuli. No respiratory effort. Given aforementioned patient expressed prior wishes and documentation including DNR no resuscitative efforts were continued. Time of 1809. I notified family and expressed my condolences. Ultimately the exact cause of is unclear. His clinical presentation was concerning for marked central nervous system abnormality. Status epilepticus remains high on the differential. It is also possible that though his oxygenation was adequate prolonged [employer] MECH[employer]IC dysfunction led to inadequate ventilation leading to subsequent respiratory and cardiac arrest. Medical Records I reviewed the patient's medical records. Lab Data I reviewed the patient's lab results. Radiology Impressions Chest X-Ray 04/08/23 17:48 IMPRESSION: No acute cardiopulmonary abnormality. Critical Care Time Critical Care Time: Critical Care Time: Yes Total Critical Care Time: 35 Attestation: Due to a high probability of clinically significant, possibly life threatening deterioration, the patient required my highest level of attention and preparedness to intervene emergently and I personally spent this critical care time directly and personally managing the patient. This critical care time included obtaining a history; examining the patient; pulse oximetry; ordering and review of laboratory and imaging studies; arranging urgent treatment with development of a management plan; evaluation of patient's response to treatment; frequent reassessment; and, discussions with other providers as applicable. It was exclusive of separately billable procedures. 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
--- NOTE | 2023-04-08 17:48 | XRR_ITS ---
PROCEDURE INFORMATION: Exam: XR Chest Exam date and time: 04/08/2023 5:58 PM Age: 52 years old Clinical indication: Pain; Chest pressure; Additional info: AMS TECHNIQUE: Imaging protocol: Radiologic exam of the chest. Views: 1 view. COMPARISON: CR XR chest 1V portable [id number] 06/09/2020 12:44 PM FINDINGS: Tubes, catheters and devices: Overlying monitor leads. Lungs: Mild chronic basilar markings with prior exam. No acute focal infiltrate or consolidation. Pleural spaces: Unremarkable. No pleural effusion. No pneumothorax. Heart/Mediastinum: Unremarkable. No cardiomegaly. Bones/joints: Slight thoracic dextroscoliosis. Mild spondylotic change thoracic spine. XR/XR chest 1V portable [id number] IMPRESSION: No acute cardiopulmonary abnormality.
--- NOTE | 2023-04-08 18:03 | PC.NURSE ---
Pt in CT scan
--- NOTE | 2023-04-08 18:05 | PC.NURSE ---
Called to CT by radiology staff, pt noted to have agonal respirations with slow pulse of less than 20. Pt is DNR. Dr Urena called into CT to assess pt, RT also at bedside and instructed by Dr Urena to start assisting respirations with BVM and Dr Urena left to talk with pt's parents who are in pt's ER room. Pt placed on portable cafeteria monitor, Dr Urena back to pt's bedside, asystole noted on monitor, time of 1809, Dr Urena informed pt's family, pt taken back to ER room. Additional family allowed in from waiting room at mother's request.
[2023-04-08] MEDS: naloxone 0.4 mg/ml SDV (18:09)
--- NOTE | 2023-04-08 18:10 | PC.NURSE ---
Dr Urena at pt's bedside in CT room with myself, Tesha Trammell RN, respiratory therapist, and CT staff. Pt on equipment monitor phototypesetting, asystole noted and confirmed by Dr Urena and 2 RNs at bedside.
--- NOTE | 2023-04-08 18:24 | PC.NURSE ---
called Luis Eduardo Ordaz at 182 to report . released the body. I advised TOD was 181.
--- NOTE | 2023-04-08 19:27 | PC.NURSE ---
MTS notified of patient passing @1840. Information given as requested. Patient is to remain on a hold until family contacted and decision made concerning body/tissue donation. Nursing staff and reheater helper notified of hold.
--- NOTE | 2023-04-08 21:17 | NUR.SHIFT ---
[facility] time 2049
== END 2023-04-08 20:50 | disposition expired ==
PROVIDERS: Emergency Provider Emergency Medicine
DX: G40.909 Epilepsy, unspecified, not intractable, without status epilepticus (principal); R00.0 Tachycardia, unspecified; F79 Unspecified intellectual disabilities; Z66 Do not resuscitate
CPT/HCPCS: 71045; 96374; 99284; J2310